=== PATIENT | male | born 1945 | race Caucasian/White ===

== ENCOUNTER → 2018-09-11 | Outpatient (CLI) | payer MEDICARE, BC ==
[~2018-09-11] VITALS: Ht 182.9 cm; Wt 72.5 kg
[2018-09-11] VITALS (16 sets, daily range): BP systolic 160–185; BP diastolic 81–100; PULSE 65–89
[~2018-09-11] MED LIST: ASPIRIN 32325 MG/TA1 PO; FLOMAX 0.40.4 MG/CAP PO; IPRATROPIUM BROM3 M1 IH; LANOXIN 0.120.125 MG PO; PREDNISONE10 MG PO; PRINIVIL20 MG PO; PROTONIX 40MG T40 MG PO; PULMICORT0.25 MG/2 IH; YUPELRI175 MCG/3 IH; ZOCOR 20MG20 MG PO
--- NOTE | 2018-09-11 10:30 | NUR ---
pt to ct per wheelchair. Pt up and positioned on table. Monitors applied and o2 on at 6l/nc.
--- NOTE | 2018-09-11 11:15 | NUR ---
specimens obtained by Dr Hamlin from left humerous. Specimens placed in formalin and specimen labeled.
== END ==
LOC: COL.RAD 09:09
DX: J43.9 Emphysema, unspecified (principal); R91.8 Other nonspecific abnormal finding of lung field; M89.9 Disorder of bone, unspecified
CPT/HCPCS: J2250; J3010